=== PATIENT | male | born 1975 | race Caucasian/White ===

== ENCOUNTER 2021-01-01 22:30 | Emergency (ER) | payer MEDICAID ==
[~2021-01-01] VITALS: Ht 182.9 cm; Wt 81.6 kg
[2021-01-02 01:03] LABS: Basophils # (auto) 0.1 10 ^3/uL (0-0.2); Basophils % (auto) 1.2 % (0.0-2.0); Eosinophils # (auto) 0.1 10 ^3/uL (0-0.8); Eosinophils % (auto) 1.2 % (0.0-7.0); Hematocrit 41.5 % (41.0-53.0); Hemoglobin 14.1 g/dL (13.5-17.5); Lymphocytes # (auto) 3.3 10 ^3/uL (0.4-5.4); Mean Corpuscular Hemoglobin 32.3 pg (28.0-32.0); Mean Corpuscular Hgb Conc. 33.9 g/dL (32.0-36.0); Mean Corpuscular Volume 95.3 fL (80.0-100.0); Monocytes # (auto) 0.8 10 ^3/uL (0-1.3); Monocytes % (auto) 9.3 % (0.0-12.0); Neutrophils % (auto) 48.3 % (37.0-80.0); Nucleated Red Blood Cells % 0.1 %; Red Blood Cells 4.36 10^6/uL (4.5-5.90); Red Cell Distribution Width 13.2 % (11.8-14.3); White Blood Cell 8.3 10^3/uL (4.4-10.8)
[2021-01-02 01:19] LABS: BUN/Creatinine Ratio 8.3; Calcium 8.7 mg/dL (8.5-10.1); Potassium 3.8 mmol/L (3.5-5.1)
[2021-01-02 01:20] LABS: Acetaminophen < 2.0 ug/mL (10-30); Salicylate < 1.7 mg/dL (2.8-20.0)
[2021-01-02 07:58] LABS: Amphetamine Screen, Urine NEGATIVE (NEGATIVE); Barbiturate Scree,Urine NEGATIVE (NEGATIVE); Benzodiazephine Screen, Urine NEGATIVE (NEGATIVE); Cannabinoid Screen, Urine NEGATIVE (NEGATIVE); Cocaine Screen, Urine NEGATIVE (NEGATIVE); Opiate Scree,Urine NEGATIVE (NEGATIVE); Phencyclidine Screen, Urine NEGATIVE (NEGATIVE)
[2021-01-02 08:52] VITALS: BP 99/63
== END 2021-01-02 11:53 | disposition left against medical advice (07) ==
LOC: ER 22:30
DX: F32.9 Major depressive disorder, single episode, unspecified (principal); R45.851 Suicidal ideations; Z76.89 Persons encountering health services in other specified circumstances; Z59.00 Homelessness unspecified
CPT/HCPCS: 36415; 80048; 80307; 80320; 80329; 85025

== ENCOUNTER 2021-01-02 22:01 | Emergency (ER) | payer MEDICAID ==
[~2021-01-02] VITALS: Ht 182.9 cm; Wt 81.6 kg
[2021-01-02 22:01] VITALS: BP 102/74
== END 2021-01-02 23:01 | disposition home or self-care (01) ==
LOC: ER 22:01
DX: F41.9 Anxiety disorder, unspecified (principal); F32.9 Major depressive disorder, single episode, unspecified

== ENCOUNTER 2021-01-07 21:16 | Emergency (ER) | payer MEDICAID ==
[~2021-01-07] VITALS: Ht 182.9 cm; Wt 907.2 kg
[2021-01-08 15:39] LABS: Basophils # (auto) 0 10 ^3/uL (0-0.2); Basophils % (auto) 0.2 % (0.0-2.0); Eosinophils # (auto) 0 10 ^3/uL (0-0.8); Eosinophils % (auto) 0.2 % (0.0-7.0); Hematocrit 41.1 % (41.0-53.0); Lymphocytes # (auto) 2.1 10 ^3/uL (0.4-5.4); Lymphocytes % (auto) 23.1 % (10.0-50.0); Mean Corpuscular Hgb Conc. 34.1 g/dL (32.0-36.0); Mean Corpuscular Volume 93.7 fL (80.0-100.0); Monocytes # (auto) 0.7 10 ^3/uL (0-1.3); Monocytes % (auto) 7.2 % (0.0-12.0); Neutrophils # (auto) 6.4 10 ^3/uL (1.6-8.6); Neutrophils % (auto) 69.3 % (37.0-80.0); Red Blood Cells 4.39 10^6/uL (4.5-5.90); Red Cell Distribution Width 12.9 % (11.8-14.3); White Blood Cell 9.2 10^3/uL (4.4-10.8)
[2021-01-08 16:02] LABS: Albumin 3.2 g/dL (3.4-5.0); Calcium 8.6 mg/dL (8.5-10.1); Potassium 5.4 mmol/L (3.5-5.1)
[2021-01-08 16:03] LABS: Salicylate < 1.7 mg/dL (2.8-20.0)
[2021-01-08 16:06] LABS: Acetaminophen < 2.0 ug/mL (10-30); Bilirubin, Total 0.4 mg/dL (0.2-1.0); Total Protein 7.7 g/dL (6.4-8.2)
[2021-01-08 16:09] LABS: BUN/Creatinine Ratio 7.6
[2021-01-08] MEDS ORDERED: diazePAM 5 MG TAB PO ONE (21:30)
[2021-01-09 06:48] VITALS: BP 122/84
== END 2021-01-09 09:48 | disposition home or self-care (01) ==
LOC: ER 21:18
DX: S02.2XXA Fracture of nasal bones, initial encounter for closed fracture (principal); F17.210 Nicotine dependence, cigarettes, uncomplicated; Z20.822 Contact with and (suspected) exposure to COVID-19; Y04.2XXA Assault by strike against or bumped into by another person, initial encounter; Y93.89 Activity, other specified; Y92.89 Other specified places as the place of occurrence of the external cause; Y99.8 Other external cause status
CPT/HCPCS: 36415; 70450; 70486; 71045; 72125; 80053; 80320; 80329; 85025; 87426

== ENCOUNTER 2023-07-17 21:40 | Emergency (ER) | payer MEDICAID ==
[~2023-07-17] VITALS: Ht 185.4 cm; Wt 81.6 kg
[2023-07-18 00:08] VITALS: PULSE 92; RESP 20; O2SAT 94
[2023-07-18] MEDS: HYDROmorphone HCL 2 MG/ML VL/or syr IM ONE (00:10)
[2023-07-18 01:20] VITALS: PULSE 58; RESP 14; O2SAT 98
[2023-07-18 04:43] VITALS: BP 119/58; PULSE 95; RESP 12; TEMP 98.7; O2SAT 97
== END 2023-07-18 04:58 | disposition short-term general hospital (02) ==
LOC: EDBD 21:40 → ER 21:40
DX: S09.8XXA Other specified injuries of head, initial encounter (principal); F17.210 Nicotine dependence, cigarettes, uncomplicated; Z59.00 Homelessness unspecified; Y04.2XXA Assault by strike against or bumped into by another person, initial encounter; Y93.89 Activity, other specified; Y92.89 Other specified places as the place of occurrence of the external cause; Y99.8 Other external cause status
CPT/HCPCS: 70450; 70480; 70486; 72125; 96372; 99285; J1170